=== PATIENT | female | born 1995 | race Caucasian/White ===

== ENCOUNTER 2021-07-08 11:02 | Emergency (ER) | payer OTHER ==
[~2021-07-08] VITALS: Ht 152.4 cm; Wt 48.5 kg
[2021-07-08] MEDS ORDERED: PRENATAL + DHA1 EAC1 PO (11:28)
== END 2021-07-08 16:57 | disposition home or self-care (01) ==
LOC: ER 11:02
DX: O20.8 Other hemorrhage in early pregnancy (principal); Z3A.01 Less than 8 weeks gestation of pregnancy

== ENCOUNTER 2021-07-25 06:49 | Day surgery (SDC) | payer OTHER ==
[~2021-07-25] VITALS: Ht 152.4 cm; Wt 47.2 kg
[~2021-07-25 06:49] MED LIST: PRENATAL + DHA1 EAC1 PO
[2021-07-25] MEDS ORDERED: PRENA1 TRUE CO1 EACH PO (07:12)
== END 2021-07-25 22:00 | disposition home or self-care (01) ==
LOC: ER 06:49 → CIR.AMB 11:48
PROVIDERS: ATTEND Obstetrics & Gynecology
DX: O02.1 Missed abortion (principal); Z3A.12 12 weeks gestation of pregnancy; Z20.822 Contact with and (suspected) exposure to COVID-19